=== PATIENT | male | born 1945 | race Caucasian/White ===

== ENCOUNTER 2017-11-28 11:01 | Emergency (ER) | payer MEDICARE, OTHER ==
[2017-11-28] MEDS ORDERED: BUPIVACAINE 0.5% PF 10 ML VIAL SUBQ STA (12:16)
--- NOTE | 2017-11-28 12:46 | ED Physician Documentation ---
PD HPI LOWER EXT INJURY - Stated complaint Stated Complaint: LT LEG LAC - Chief complaint Chief Complaint: Laceration - History obtained from History obtained from: Patient - History of Present Illness PD HPI LOW EXT INJURY LOCATION: Left, Lower leg Type of injury: Blunt / blow Where injury occurred: Street Timing - onset: Today Timing - duration: Minutes Timing - details: Abrupt onset, Still present Improved by: Rest, Immobilization Worsened by: Moving, Palpating Associated symptoms: No: Weakness, Numbness, Tingling Contributing factors: Anticoagulated Similar symptoms before: Diagnosis (skin tear) Recently seen: Not recently seen - Additional information Additional information: 72-year-old male on Coumadin has hit the side of his left calf with his door and split open the skin. He is come in now for suturing. He is visiting here from [place] and he will be in the area until January. Review of Systems Constitutional: denies: Fever Eyes: denies: Decreased vision Ears: denies: Ear pain Nose: denies: Congestion Throat: denies: Sore throat Respiratory: denies: Cough GI: denies: Vomiting Skin: reports: Laceration (s) Neurologic: denies: Generalized weakness, Focal weakness, Numbness PD PAST MEDICAL HISTORY - Past Medical History Past Medical History: Yes Cardiovascular: Atrial fibrillation Respiratory: Sleep apnea : Other Other Past Medical History: Prostate cancer. - Past Surgical History Past Surgical History: Yes Cardiovascular: Other - Present Medications Home Medications: Ambulatory Orders Medication Instructions Recorded Confirmed Albuterol 2.5 mg INH Q4H PRN 11/28/17 11/28/17 Aspirin 81 mg PO 11/28/17 Atorvastatin [Lipitor] 10 mg ORAL DAILY 11/28/17 11/28/17 Benazepril HCl 40 mg PO 11/28/17 Bifidobacterium Infantis [Evivo] 0.04 gm PO 11/28/17 Calcium Carbonate/Vitamin D3 1 each PO 11/28/17 [Calcium 500-Vit D3 600 Caplet] Clobetasol 0.05% Oint [Temovate 1 applic TOP 11/28/17 0.05% Oint] Cyanocobalamin [Vitamin B-12] 1,000 mcg ORAL ONCE 11/28/17 11/28/17 Diphenoxylate/Atropine [Lomotil] 11/28/17 Doxepin [SINEquan] 25 mg PO QPM 11/28/17 11/28/17 Folic Acid 1 mg PO DAILY 11/28/17 11/28/17 Guaifenesin [Mucinex] 600 mg PO 11/28/17 Imiquimod 1 each TP 11/28/17 Leuprolide [Lupron] 7.5 mg IM 11/28/17 Methotrexate 2.5 mg PO DAILY 11/28/17 11/28/17 Methyl Cpg 1 tab ORAL DAILY 11/28/17 Nad, Reduced, Disodium 500 mg ORAL DAILY 11/28/17 11/28/17 [Nicotinamide Adenine] Sotalol [Betapace] 120 mg PO BID 11/28/17 11/28/17 Tiotropium [place] [Spiriva 2 puffs IH 11/28/17 Respimat] Warfarin [Coumadin] 2.5 mg PO 1400 11/28/17 11/28/17 amLODIPine [Norvasc] 5 mg PO ONCE 11/28/17 11/28/17 - Allergies Allergies/Adverse Reactions: Allergies Allergy/AdvReac Type Severity Reaction Status Date / Time Sulfa (Sulfonamide Allergy Emesis Verified 11/28/17 11:09 Antibiotics) - Social History Does the pt smoke?: No Smoking Status: Never smoker Does the pt drink ETOH?: Yes ETOH Use: Wine Does the pt have substance abuse?: No - Immunizations Immunizations are current?: Yes Immunizations: TDAP current <10years PD ED PE NORMAL - Vitals Vital signs reviewed: Yes (hypertensive ) - General General: Alert and oriented X 3, No acute distress, Well developed/nourished - HEENT HEENT: Atraumatic, PERRL, EOMI - Respiratory Respiratory: No respiratory distress - Derm Derm: Normal color, Warm and dry, No rash - Extremities Extremities: No deformity, No edema, Other (over the medial aspect of the left calf about mid calf is a 6 cm laceration that penetrates to the fascia and is through the fatty tissue. There is a thin flap of skin associtated with this that is wider more anteriorly and split anteriorly ) - Neuro Neuro: Alert and oriented X 3, No motor deficit, No sensory deficit, Normal speech Eye Opening: Spontaneous Motor: Obeys Commands Verbal: Oriented GCS Score: 15 - Psych Psych: Normal mood, Normal affect Results - Vitals Vitals: Vital Signs - 24 hr 11/28/17 11:06 Temperature 36.4 C L Heart Rate 65 Respiratory 16 Rate Blood Pressure 131/109 H O2 Saturation 99 Oxygen O2 Source Room air - Labs Labs: Laboratory Tests 11/28/17 12:23 Whole Blood INR 2.6 H Procedures - Laceration (location) left calf Length in cm: 6 Wound type: Irregular, Into subcut fat, Clean Neurovascular status: Sensory intact, Motor intact, Vascular intact Anesthesia: Marcaine 0.5% Wound Preparation: Hibiclens, Irrigated copiously NS, Wound explored, To the base Skin layer closure: Nylon, Interrupted, Size #-0 - enter number (4-0) Other: Patient tolerated well, No complications, Neurovascular intact, Dressing applied, Tetanus UTD Complexity: Simple PD MEDICAL DECISION MAKING - ED course Complexity details: considered differential, d/w patient ED course: 72-year-old male with a laceration and a thin flap of skin that is inadequate to entirely cover the laceration is sutured most of the laceration is reapproximated nicely there is some that will require secondary intention for healing. Wound dressing is placed he is up-to-date on his tetanus. - Sepsis Event Vital Signs: Vital Signs - 24 hr 11/28/17 11:06 Temperature 36.4 C L Heart Rate 65 Respiratory 16 Rate Blood Pressure 131/109 H O2 Saturation 99 Oxygen O2 Source Room air Departure - Departure Disposition: 01 Home, Self Care Clinical Impression: Laceration of calf Qualifiers: Encounter type: initial encounter Laterality: left Qualified Code(s): S81.812A - Laceration without foreign body, left lower leg, initial encounter Condition: Stable Instructions: ED Laceration All Follow-Up: [facility] [place] [Provider Group] Comments: These sutures will need to be removed in about 2 weeks. This area of the body heals particularly slow and you may still have an issue with this wound for about 1 month.
[2017-11-28 13:28] VITALS: BP 131/91
== END 2017-11-28 13:27 | disposition home or self-care (01) ==
LOC: ED 11:01
DX: S81.812A Laceration without foreign body, left lower leg, initial encounter (principal); I48.91 Unspecified atrial fibrillation; Z79.01 Long term (current) use of anticoagulants; Z79.82 Long term (current) use of aspirin; W22.8XXA Striking against or struck by other objects, initial encounter; Y92.410 Unspecified street and highway as the place of occurrence of the external cause
CPT/HCPCS: 12002; 85610; 99282; 99283

== ENCOUNTER 2020-01-06 10:18 | Emergency (ER) | payer MEDICARE, OTHER ==
[2020-01-06] MEDS ORDERED: LIDOCAINE-EPINEPH-TETRACAINE 3 ML SYRINGE TOP STA (13:08)
[2020-01-06] MEDS ORDERED: SILVER NITRATE APPLICATOR TOP STA (13:29)
--- NOTE | 2020-01-06 13:46 | ED Physician Documentation ---
PD HPI HEENT - Stated complaint Stated Complaint: NOSE BLEED - Chief complaint Chief Complaint: Trauma Hd/Nk - History obtained from History obtained from: Patient, Family - History of Present Illness Timing - onset: Last night Timing - duration: Hours Timing - details: Abrupt onset, Now resolved Location: Nose Improves: Other (pressure) Associated symptoms: Cough (similar to always), Other (wears C-pap). No: Fever, Congestion, Rhinorrhea, Trismus, Unable to swallow, Swollen nodes, Facial swelling, Headache Similar symptoms before: Has not had sx before Recently seen: Not recently seen Review of Systems Constitutional: denies: Fever Eyes: denies: Decreased vision Ears: denies: Ear pain Nose: reports: Epistaxis Throat: denies: Sore throat Cardiac: denies: Chest pain / pressure Respiratory: reports: Dyspnea (similar to always), Cough GI: denies: Nausea, Vomiting : denies: Dysuria, Frequency PD PAST MEDICAL HISTORY - Past Medical History Past Medical History: Yes Cardiovascular: Hypertension, Coronary artery disease, Atrial fibrillation Respiratory: Sleep apnea : Other Other Past Medical History: Chronic back pain, Hyoperlipidemia,anemia,. skin cx, syncope, prostate cax, - Past Surgical History Past Surgical History: Yes Cardiovascular: Other - Present Medications Home Medications: Ambulatory Orders Medication Instructions Recorded Confirmed Albuterol 2.5 mg INH Q4H PRN 11/28/17 11/28/17 Aspirin 81 mg PO 11/28/17 Atorvastatin [Lipitor] 10 mg ORAL DAILY 11/28/17 11/28/17 Benazepril HCl 40 mg PO 11/28/17 Bifidobacterium Infantis [Evivo] 0.04 gm PO 11/28/17 Calcium Carbonate/Vitamin D3 1 each PO 11/28/17 [Calcium 500-Vit D3 600 Caplet] Clobetasol 0.05% Oint [Temovate 1 applic TOP 11/28/17 0.05% Oint] Cyanocobalamin [Vitamin B-12] 1,000 mcg ORAL ONCE 11/28/17 11/28/17 Diphenoxylate/Atropine [Lomotil] 11/28/17 Doxepin [SINEquan] 25 mg PO QPM 11/28/17 11/28/17 Folic Acid 1 mg PO DAILY 11/28/17 11/28/17 Guaifenesin [Mucinex] 600 mg PO 11/28/17 Imiquimod 1 each TP 11/28/17 Leuprolide [Lupron] 7.5 mg IM 11/28/17 Methotrexate 2.5 mg PO DAILY 11/28/17 11/28/17 Methyl Cpg 1 tab ORAL DAILY 11/28/17 Nad, Reduced, Disodium 500 mg ORAL DAILY 11/28/17 11/28/17 [Nicotinamide Adenine] Sotalol [Betapace] 120 mg PO BID 11/28/17 11/28/17 Tiotropium [place] [Spiriva 2 puffs IH 11/28/17 Respimat] Warfarin [Coumadin] 2.5 mg PO 1400 11/28/17 11/28/17 amLODIPine [Norvasc] 5 mg PO ONCE 11/28/17 11/28/17 - Allergies Allergies/Adverse Reactions: Allergies Allergy/AdvReac Type Severity Reaction Status Date / Time Sulfa (Sulfonamide Allergy Emesis Verified 01/06/20 10:42 Antibiotics) - Social History Does the pt smoke?: No Smoking Status: Never smoker Does the pt drink ETOH?: Yes Does the pt have substance abuse?: No - Immunizations Immunizations are current?: Yes Immunizations: TDAP current <10years PD ED PE NORMAL - Vitals Vital signs reviewed: Yes (normal ) - General General: Alert and oriented X 3, No acute distress - HEENT HEENT: Atraumatic, PERRL, EOMI, Other (There is a spot on the septum just inside the nose where it appears acute bleeding has recently occurred. The remainder of the blood is removed away from this and there does appear to be a small laceration to the septum. This is cauterized with silver nitrate.) - Respiratory Respiratory: No respiratory distress Results - Vitals Vitals: Vital Signs - 24 hr 01/06/20 10:39 Temperature 36.3 C L Heart Rate 61 Respiratory 16 Rate Blood Pressure 108/71 O2 Saturation 97 Oxygen O2 Source Room air - Labs Labs: Laboratory Tests 01/06/20 11:24 Whole Blood INR 1.9 H PD MEDICAL DECISION MAKING - ED course Complexity details: considered differential, d/w patient ED course: 74-year-old male with acute epistaxis in the anterior septum has a small cut in the area and this is cauterized with silver nitrate after administration of topical let. Patient tolerates this well and the bleeding appears controlled. His spot of bleeding is amenable to clamping and he has been given a clamp and instructions on its use. Departure - Departure Disposition: 01 Home, Self Care Clinical Impression: Epistaxis Condition: Stable Instructions: ED Nosebleed Follow-Up: CORAL CORONEL MD [Primary Care Provider] -
[2020-01-06 13:49] VITALS: BP 129/89
== END 2020-01-06 13:55 | disposition home or self-care (01) ==
LOC: ED 10:18
DX: S01.21XA Laceration without foreign body of nose, initial encounter (principal); X58.XXXA Exposure to other specified factors, initial encounter; I48.91 Unspecified atrial fibrillation; Z79.01 Long term (current) use of anticoagulants; Z79.82 Long term (current) use of aspirin; I10 Essential (primary) hypertension
CPT/HCPCS: 30901; 85610; 99283